=== PATIENT | male | born 1990 | race Caucasian/White ===

== ENCOUNTER 2017-06-17 06:25 | Emergency (ER) | payer SELFPAY ==
[~2017-06-17] VITALS: Ht 167.6 cm; Wt 60.0 kg
[2017-06-17] MEDS: TETANUS, DIPHTHERIA, PERTUSSIS VAC/PF 0.5ML (>7YR OLD) IM ONE (07:34)
[2017-06-17] MEDS: BACITRACIN/POLYMYXIN B SULFATE OINT 15GM TOP ONE (07:35)
[2017-06-17 08:10] VITALS: BP 124/75
== END 2017-06-17 08:14 | disposition home or self-care (01) ==
LOC: ER 06:25
DX: S21.212A Laceration without foreign body of left back wall of thorax without penetration into thoracic cavity, initial encounter (principal); I10 Essential (primary) hypertension; W26.8XXA Contact with other sharp object(s), not elsewhere classified, initial encounter; Y93.89 Activity, other specified; Y92.89 Other specified places as the place of occurrence of the external cause; Y99.8 Other external cause status
CPT/HCPCS: 71010; 90715; 96372; 99283